=== PATIENT | male | born 1990 | race African-American/Black ===

== ENCOUNTER 2024-03-15 19:50 | Inpatient (IN) ==
[2024-03-15 20:43] LABS: BASOPHILS % (AUTO) 0.2 %; HCT - HEMATOCRIT 46.8 % (42.0-52.0); HGB - HEMOGLOBIN 14.7 g/dL (14.0-18.0); LYMPHOCYTES # (AUTO) 1.4 10^3/uL (1.5-3.5); LYMPHOCYTES % (AUTO) 12.3 %; MEAN CORPUSCULAR HEMOGLOBIN 26.1 pg (27.0-31.0); MEAN CORPUSCULAR HGB CONC 31.4 g/dL (32.0-36.0); MEAN CORPUSCULAR VOLUME 83.1 fL (80.0-94.0); MEAN PLATELET VOLUME 10.5 fL (7.4-11.4); MONOCYTES # (AUTO) 1.1 10^3/uL (0.0-1.0); MONOCYTES % (AUTO) 9.8 %; NEUTROPHILS # (AUTO) 8.7 10^3/uL (1.5-6.6); NEUTROPHILS % (AUTO) 77.1 %; PLT - PLATELET COUNT 448 10^3/uL (130-450); RED BLOOD COUNT 5.63 10^6/uL (4.70-6.10); WHITE BLOOD COUNT 11.3 x10^3/uL (4.8-10.8)
[2024-03-15 21:09] LABS: ALBUMIN 4.1 g/dL (3.2-5.5); ALBUMIN/GLOBULIN RATIO 0.7 (1.0-2.2); BILIRUBIN,TOTAL 0.6 mg/dL (0.2-1.0); CALCIUM 10.6 mg/dL (8.5-10.3); CREATININE 1.5 mg/dL (0.6-1.3); TOTAL PROTEIN 10.3 g/dL (6.4-8.9)
--- NOTE | 2024-03-15 21:26 | ED Physician Documentation ---
PD HPI NVD Stated complaint Stated Complaint: VOMIT Chief complaint Chief Complaint: Abd Pain Additonal information Additional information: HPI from patient. Patient c/o nausea, vomiting, and diarrhea that began three days ago without specific inciting event. The diarrhea resolved yesterday but nausea and vomiting persist with increasingly frequent vomiting and no longer tolerating even sips of liquids for most of the day today. Denies any pain including abdominal pain, denies fever. Denies h/o similar symptoms to an extent that required medical attention. Has not noticed any blood in his vomitus nor stool, denies black/tarry stool. Drinks alcohol occasionally, last was approximately 2 weeks ago; he denies heavy/regular alcohol intake. Meds/Allgy Home Medications Ambulatory Orders Medication Instructions Recorded Confirmed calcium carbonate 500 mg PO DAILY PRN heartburn 03/16/24 03/16/24 ibuprofen 200 mg tablet (Advil) 200 mg PO Q8H PRN pain 03/16/24 03/16/24 diabetic supplies, miscellan. #1 ea 03/17/24 insulin glargine-yfgn 100 unit/mL 15 unit (0.15 mL) subcut QPM #4.5 03/17/24 subcutaneous solution mL Allergies Allergies Allergy/AdvReac Type Severity Reaction Status Date / Time hazelnut Allergy Anaphylaxis Verified 03/15/24 20:05 squash Allergy Anaphylaxis Verified 03/15/24 20:05 [facility] Social History Social History (Updated 03/16/24 @ 03:24 by Madison Villanueva MD) Smoking Status: Former smoker Second hand tobacco smoke exposure: No Do you dip or chew tobacco?: No Do you vape?: No Patient requests smoking cessation consult: No Initiate information on smoking cessation: No Relationship: Level: Independent Do you feel safe in your home environment?: Yes Suffered physical, verbal, emotional, or financial abuse?: No Substance Use: denies use POLST Patient has POLST: No Exam Constitutional normal general appearance, no apparent distress and alert HENMT oral mucous membranes abnormal (dry) Respiratory breath sounds equal bilaterally and clear to auscultation bilaterally Cardiovascular heart rate abnormal (tachycardic), regular rhythm noted and no murmur Gastrointestinal abdomen normal to inspection, abdomen soft to palpation, nontender to palpation, nondistended and normoactive bowel sounds Psychiatry mental status grossly normal, oriented x3, thought process normal and affect normal Results Vitals Vitals: Oxygen O2 Source Room air Labs Labs: Laboratory Tests 03/15/24 03/15/24 03/15/24 20:35 22:00 22:04 WBC 11.3 H RBC 5.63 Hgb 14.7 Hct 46.8 MCV 83.1 MCH 26.1 L MCHC 31.4 L RDW 12.0 Plt Count 448 MPV 10.5 Neut # (Auto) 8.7 H Lymph # (Auto) 1.4 L Beauregard # (Auto) 1.1 H Eos # (Auto) 0.0 Baso # (Auto) 0.0 Absolute Nucleated RBC 0.00 Nucleated RBC % 0.0 VBG pH 7.345 VBG pCO2 29.2 L VBG pO2 48.0 H VBG HCO3 16.1 L VBG Total CO2 17.0 L VBG O2 Saturation 59.0 L VBG Base Excess -9.8 L Sodium 130 L Potassium 4.0 Chloride 80 L* Carbon Dioxide 20 L Anion Gap 30.0 H BUN 43 H Creatinine 1.5 H Estimated GFR (MDRD) 65 L Glucose 523 H* POC Whole Bld Glucose Calcium 10.6 H Phosphorus 6.2 H Magnesium 2.5 H Total Bilirubin 0.6 AST 12 ALT 15 Alkaline Phosphatase 108 Total Protein 10.3 H Albumin 4.1 Globulin 6.2 H Albumin/Globulin Ratio 0.7 L Lipase 27 Urine Color LIGHT YELLOW Urine Clarity SL. CLOUDY Urine pH 5.5 Ur Specific Mercer 1.025 Urine Protein 100 H Urine Glucose (UA) >=1000 H Urine Ketones >=80 H Urine Occult Blood MODERATE H Urine Nitrite NEGATIVE Urine Bilirubin SMALL H Urine Urobilinogen 0.2 (NORMAL) Ur Leukocyte Esterase NEGATIVE Urine RBC 0-5 Urine WBC 6-10 H Urine WBC Clumps PRESENT Ur Epithelial Cells RARE Transitional Ur Squamous Epith Cells MOD Squamous H Urine Bacteria Moderate H Urine Yeast PRESENT Ur Microscopic Review INDICATED Urine Culture Comments NOT INDICATED Serum Ketones SMALL H 03/15/24 03/16/24 03/16/24 23:32 00:56 01:18 WBC RBC Hgb Hct MCV MCH MCHC RDW Plt Count MPV Neut # (Auto) Lymph # (Auto) Beauregard # (Auto) Eos # (Auto) Baso # (Auto) Absolute Nucleated RBC Nucleated RBC % VBG pH VBG pCO2 VBG pO2 VBG HCO3 VBG Total CO2 VBG O2 Saturation VBG Base Excess Sodium 137 Potassium 3.9 Chloride 94 L Carbon Dioxide 20 L Anion Gap 23.0 H BUN 40 H Creatinine 1.3 Estimated GFR (MDRD) 76 L Glucose 368 H POC Whole Bld Glucose 398 371 Calcium 9.2 Phosphorus Magnesium Total Bilirubin AST ALT Alkaline Phosphatase Total Protein Albumin Globulin Albumin/Globulin Ratio Lipase Urine Color Urine Clarity Urine pH Ur Specific Mercer Urine Protein Urine Glucose (UA) Urine Ketones Urine Occult Blood Urine Nitrite Urine Bilirubin Urine Urobilinogen Ur Leukocyte Esterase Urine RBC Urine WBC Urine WBC Clumps Ur Epithelial Cells Ur Squamous Epith Cells Urine Bacteria Urine Yeast Ur Microscopic Review Urine Culture Comments Serum Ketones PD Medical Decision Making ED course Complexity details: reviewed results, re-evaluated patient, considered differential and d/w patient ED course: Presents with n/v/diarrhea, although no diarrheal stools since yesterday. NAD on exam but parched mucous membranes and significant tachycardia. Initial heart rates were 130s-140s at rest, increasing in proportion to position and exertion (worse with standing and ambulating such as from triage to ED room, and from lying on stretcher to standing and ambulating to bathroom). The tachycardia improved in proportion to amount of IV fluids administered but did not resolve even after total of 3 liters NS IV (towards end of ED stay, heart rates were mostly in mid 110s - mid 120s range. Mild leukocytosis (wbc 11.3) on otherwise unremarkable CBC. However, his abnormalities on ER abdominal panel are relevant for glucose 523, BUN 43 and creatinine 1.5. No previous results in [facility] for purposes of comparison, but patient does not have h/o diabetes nor has he ever been told he has abnormal kidney tests. Mild hyponatremia noted (130) as well as hypochloremia (80). Small serum ketones. Without previous results, unclear acuity (vs chronicity) regarding the abnormal renal function tests but given c/o 3 days n/v with negligible PO intake all day today as well as tachycardia that only modestly improved after 3 liters NS, the abnormal BUN and creatinine are likely a consequence of significant dehydration (MARILYN). He is given 10 u regular insulin IV early in ED stay, subsequently given 5 units regular insulin IV. He had ongoing nausea despite three doses of IV zofran (4mg doses for total of 12 mg during ED stay). I discussed this case with [facility] practitioner [facility]communication [facility] and they accept patient for admit to [facility]. Discharge Plan Discharge Patient Disposition: [facility] DC/Xfer Condition: Stable Clinical Impression: Acute hyperglycemia, Dehydration Interventions: ED Admission Assessment Last Done: 03/16/24 03:22
[2024-03-15] MEDS: SODIUM CHLORIDE 0.9% 1,000 ML IV STA (21:33)
[2024-03-15 21:35] LABS: KETONES, SERUM (ACETEST) SMALL (NEGATIVE)
[2024-03-15 21:38] LABS: MAGNESIUM 2.5 mg/dL (1.7-2.3); PHOSPHORUS 6.2 mg/dL (2.5-5.0)
[2024-03-15 22:03] LABS: BILIRUBIN,URINE SMALL (NEGATIVE); GLUCOSE, URINE (UA) >=1000 mg/dL (NEGATIVE); KETONES,URINE (UA) >=80 mg/dL (NEGATIVE); LEUKOCYTE ESTERASE, URINE NEGATIVE (NEGATIVE); NITRITE,URINE NEGATIVE (NEGATIVE); OCCULT BLOOD,URINE MODERATE (NEGATIVE); PH,URINE 5.5 PH (5.0-7.5); PROTEIN,URINE 100 mg/dL (NEGATIVE); UROBILINOGEN,URINE 0.2 (NORMAL) E.U./dL (NORMAL)
[2024-03-15 22:07] LABS: CLARITY,URINE SL. CLOUDY (CLEAR)
[2024-03-15 22:10] LABS: VBG PH 7.345 (7.31-7.41)
[2024-03-15 22:11] LABS: VBG BASE EXCESS -9.8 mmol/L (-2 - +2); VBG PCO2 29.2 mmHg (41-51)
[2024-03-15] MEDS: SODIUM CHLORIDE 0.9% 500 ML IV ONE ×2 (22:17→22:49)
[2024-03-15 22:22] LABS: BACTERIA,URINE Moderate /HPF (None Seen); EPITHELIAL CELLS,UR RARE Transitional /HPF (<= Few); RBC,URINE 0-5 /HPF (0-5); SQUAMOUS EPITHELIAL CELL,UR MOD Squamous (<= Few); WBC CLUMPS,URINE PRESENT; YEAST,URINE PRESENT
[2024-03-15] MEDS: INSULIN REGULAR, HUMAN 300 UNIT/3 ML PEN IVP STA (22:47)
[2024-03-15] MEDS: ONDANSETRON 4 MG/2 ML VIAL IVP STA ×2 (22:49→23:37)
[2024-03-16] MEDS: SODIUM CHLORIDE 0.9% 1,000 ML IV STA (00:33)
[2024-03-16] MEDS: INSULIN REGULAR, HUMAN 300 UNIT/3 ML PEN IVP STA (00:40)
[2024-03-16] MEDS: INSULIN REGULAR, HUMAN 300 UNIT/3 ML PEN SUBQ STA (00:57)
[2024-03-16 01:36] LABS: CALCIUM 9.2 mg/dL (8.5-10.3); CREATININE 1.3 mg/dL (0.6-1.3); POTASSIUM 3.9 mmol/L (3.5-4.5)
[2024-03-16] MEDS: ONDANSETRON 4 MG/2 ML VIAL IVP STA (02:32)
[2024-03-16] MEDS ORDERED: ACETAMINOPHEN 325 MG TABLET PO PRN (02:51)
[2024-03-16] MEDS ORDERED: ONDANSETRON ODT 4 MG TABLET TL PRN (02:51)
[2024-03-16] MEDS ORDERED: METOCLOPRAMIDE 10 MG/2 ML VIAL IVP PRN (03:01)
--- NOTE | 2024-03-16 03:24 | HISTORY & PHYSICAL EXAMINATION ---
Chief Complaint Chief Complaint Chief Complaint: N/V History of Present Illness Admitted From Admitted From:: ER History Obtained From Records Reviewed: Yes History obtained from: Pt, pt's girlfriend, chart, staff Exam Limitations: Virtual exam History of Present Illness HPI Comment/Other: H&P was conducted via video remotely, using [employer]. [place] is in [place] Physician is in [place]. Pt's girlfriend is at bedside. 34 yo M with PMH of DJD presented to the ER with c/o 7 day h/o B/L feet pain and 3 day h/o N/V. Pt had surgery on B/L feet for injuries in past. Now, when the weather is cold, he has pain in his feet. He began to have pain B/L feet 7 days ago, making it difficult to walk. His feet pain began to improve about 3 days ago, but then he began to have N/V--no blood. No unusual foods. Pt found that he had increased nausea s/p drinking filtered water, but girlfriend tolerating water well. No contacts with N/V. Pt also had occasional loose stool: 2x in 3 days. Pt had decreased PO intake d/t N/V. No abdo pain. No dysuria. No F/C. No CP/SOB. Pt has never had similar symptoms. Pt has no h/o DM; has never been told he had high Glc before. In the ER, HR 130, WBC 11.3, Na 130, CO2 20, CR 1.5, Glc 523, +ketones, U/A: glc WBC bact Pt was given IVF x 3L, Insulin 15 U IV, Zofran in the ER. Review of Systems Status of ROS: 10 or more systems reviewed and unremarkable except as noted in history and below PFSH Social History Social History Smoking Status: Unknown if ever smoked Relationship: Do you feel safe in your home environment?: Yes Suffered physical, verbal, emotional, or financial abuse?: No POLST Patient has POLST: No Meds/Allgy Allergies Allergies Allergy/AdvReac Type Severity Reaction Status Date / Time hazelnut Allergy Anaphylaxis Verified 03/15/24 20:05 squash Allergy Anaphylaxis Verified 03/15/24 20:05 Exam Constitutional normal general appearance and no apparent distress HENMT normocephalic Dry MM Eyes EOMs intact bilaterally and no scleral icterus Respiratory cart stethoscope not working; per ER Provider: CTA B/L Cardiovascular cart stethoscope not working; per ER Provider: RR, Tachy, no murmurs Gastrointestinal per ER Provider: non-distended, NT, Soft Extremities per ER Provider: moves all extrem, no edema Neurology A+Ox3, normal speech, cooperative; per ER Provider: NFD Conclusion/Plan Problem List (1) Acute hyperglycemia: Plan: Hyperglycemia DM, new onset Dehydration Hyponatremia MARILYN N/V Tachycardia Decreased PO intake -HR 130, Na 130, CO2 20, CR 1.5, Glc 523, +ketones -Pt was given IVF x 3L, Insulin 15 U IV, Zofran in the ER. -admit to Med Surg -continue IVF -anti-emetics PRN -clear liquid diet; advance as tolerated -accuchecks, SS Insulin, Hypoglycemic protocol -check Hgba1c -Nutrition consult/teaching -avoid nephrotoxins UTI Leukocytosis -WBC 11.3, U/A: glc WBC bact -Rocephin ordered -F/U UC VTE Prophylaxis: Lovenox Code Status: Full Code ~Madison Villanueva MD Hospitalist (2) Dehydration: Lab Results 03/15/24 20:35 03/16/24 01:18
[2024-03-16] MEDS: SODIUM CHLORIDE 0.9% 1,000 ML IV SCH (03:36)
[2024-03-16] MEDS: SODIUM CHLORIDE FLUSH 0.9% 10 ML SYRINGE IVP PRN (03:37)
[2024-03-16 06:10] LABS: BASOPHILS % (AUTO) 0.2 %; EOSINOPHILS % (AUTO) 0.1 %; HCT - HEMATOCRIT 38.8 % (42.0-52.0); HGB - HEMOGLOBIN 12.7 g/dL (14.0-18.0); LYMPHOCYTES # (AUTO) 1.7 10^3/uL (1.5-3.5); LYMPHOCYTES % (AUTO) 16.7 %; MEAN CORPUSCULAR HEMOGLOBIN 27.1 pg (27.0-31.0); MEAN CORPUSCULAR HGB CONC 32.7 g/dL (32.0-36.0); MEAN CORPUSCULAR VOLUME 82.7 fL (80.0-94.0); MEAN PLATELET VOLUME 10.2 fL (7.4-11.4); MONOCYTES # (AUTO) 1.3 10^3/uL (0.0-1.0); MONOCYTES % (AUTO) 12.6 %; NEUTROPHILS # (AUTO) 7.3 10^3/uL (1.5-6.6); NEUTROPHILS % (AUTO) 69.7 %; PLT - PLATELET COUNT 364 10^3/uL (130-450); RED BLOOD COUNT 4.69 10^6/uL (4.70-6.10); RED CELL DISTRIBUTION WIDTH 12.3 % (12.0-15.0); WHITE BLOOD COUNT 10.4 x10^3/uL (4.8-10.8)
[2024-03-16 06:30] LABS: MAGNESIUM 2.3 mg/dL (1.7-2.3)
[2024-03-16 06:34] LABS: CALCIUM 8.6 mg/dL (8.5-10.3); CREATININE 1.1 mg/dL (0.6-1.3); POTASSIUM 4.5 mmol/L (3.5-4.5)
[2024-03-16] MEDS ORDERED: INSULIN REGULAR IN 0.9 % NS 100 UNIT/100 ML BAG IV SCH (08:00)
[2024-03-16] MEDS ORDERED: POTASSIUM CHLORIDE INJ 20 MEQ in SODIUM CHLORIDE 0.9% 1,000 ML IV SCH (08:00)
[2024-03-16] MEDS: ONDANSETRON 4 MG/2 ML VIAL IVP PRN (08:07)
[2024-03-16] MEDS: INSULIN LISPRO 300 UNIT/3 ML PEN SUBQ SCH ×2 (08:11→21:42)
[2024-03-16] MEDS: ENOXAPARIN 40 MG/0.4 ML SYRINGE SUBQ SCH (08:13)
[2024-03-16] MEDS: NS W/20 MEQ KCL 1,000 ML IV SCH (08:15)
[2024-03-16] MEDS: SODIUM CHLORIDE FLUSH 0.9% 10 ML SYRINGE IVP SCH (08:31)
[2024-03-16 08:48] LABS: CALCIUM 8.8 mg/dL (8.5-10.3); CREATININE 1.1 mg/dL (0.6-1.3); POTASSIUM 4.3 mmol/L (3.5-4.5)
[2024-03-16] MEDS ORDERED: cefTRIAXone 1 GM in SODIUM CHLORIDE 0.9% MINIBAG 100 ML IV SCH (09:00)
--- NOTE | 2024-03-16 09:52 | PHARMACY PROGRESS NOTE ---
Best Possible Medication History Admit Date and Time: 03/16/24 0251 Home Medications Medication Instructions Recorded Confirmed Type calcium carbonate 500 mg PO DAILY PRN heartburn 03/16/24 03/16/24 History ibuprofen 200 mg tablet (Advil) 200 mg PO Q8H PRN pain 03/16/24 03/16/24 History Processed by: Pharmacy (Medication reconciliation completed by [employer] Up OperatorDwayne) Medications reviewed in ED?: No Medication History completed: Yes Patient Interview: Completed Secondary Source(s): Insurance records [facility] Statement: As the person ultimately responsible for medication therapy, providers are able to order a medication from an existing home medication list in [facility] via the "Reconcile Routine" prior to Confirmation of that medication by windows support engineer. Such practice is discouraged except when the physician, in their clinical judgment, deems that a medical need exists for a medication without regard to previous use.
[2024-03-16] MEDS: INSULIN REGULAR HUMAN 100 UNIT in SODIUM CHLORIDE 0.9% 100ML 99 ML IV SCH (10:49)
[2024-03-16 11:35] LABS: CALCIUM 8.9 mg/dL (8.5-10.3); POTASSIUM 3.9 mmol/L (3.5-4.5)
[2024-03-16 12:05] LABS: ESTIMATED AVERAGE GLUCOSE 352 mg/dL (70-100); HEMOGLOBIN A1c% 13.9 % (4.27-6.07)
--- NOTE | 2024-03-16 12:10 | MISCELLANEOUS PROVIDER NOTE ---
Miscellaneous Provider Note - Note: Patient was admitted overnight for hyperglycemia, dehydration new onset diabetes mellitus. Urine shows ketones. Patient initially had a anion gap of 30. He remains hyperglycemic in the 300s. Patient is in DKA. Transferred to the ICU. Currently remains on insulin drip, normal saline with potassium supplementation. Plan to continue BMPs every 2 hours, glucose checks every hour. Will continue insulin drip until anion gap closed on 2 subsequent BMPs. Will then transition to long-acting insulin, and start the patient on diet, start sliding scale insulin. Continue to monitor potassium closely and replace as needed.
[2024-03-16] MEDS: PANTOPRAZOLE 40 MG VIAL IVP SCH (12:19)
[2024-03-16] MEDS: POTASSIUM CHLOR 10 MEQ/100 ML 10 MEQ/100 ML BAG IV SCH (12:19)
[2024-03-16 13:16] LABS: CALCIUM 8.8 mg/dL (8.5-10.3); MAGNESIUM 2.4 mg/dL (1.7-2.3); PHOSPHORUS 2.1 mg/dL (2.5-5.0); POTASSIUM 3.5 mmol/L (3.5-4.5)
[2024-03-16] MEDS: PROCHLORPERAZINE 10 MG/2 ML VIAL IVP PRN (13:31)
[2024-03-16] MEDS ORDERED: NS W/40 MEQ KCL 1,000 ML IV SCH (14:00)
[2024-03-16] MEDS: DEXTROSE IV STA (14:18)
[2024-03-16] MEDS: NACL IV STA (14:18)
[2024-03-16] MEDS: POTASSIUM CHLORIDE IV STA (14:18)
[2024-03-16] MEDS: POTASSIUM PHOSPHATE 15 MMOL in SODIUM CHLORIDE 0.9% 250 ML IV ONE (16:25)
[2024-03-16 17:18] LABS: MAGNESIUM 2.3 mg/dL (1.7-2.3)
[2024-03-16 17:23] LABS: CALCIUM 8.9 mg/dL (8.5-10.3); PHOSPHORUS 2.4 mg/dL (2.5-5.0); POTASSIUM 3.6 mmol/L (3.5-4.5)
[2024-03-16] MEDS: INSULIN GLARGINE-YFGN 300 UNIT/3 ML PEN SUBQ STA (17:44)
[2024-03-16] MEDS: DEXTROSE 5%-LACTATED RINGERS 1,000 ML IV SCH (19:35)
[2024-03-17 05:57] LABS: HCT - HEMATOCRIT 37.2 % (42.0-52.0); HGB - HEMOGLOBIN 11.9 g/dL (14.0-18.0); MEAN CORPUSCULAR HEMOGLOBIN 26.3 pg (27.0-31.0); MEAN CORPUSCULAR VOLUME 82.3 fL (80.0-94.0); RED BLOOD COUNT 4.52 10^6/uL (4.70-6.10); RED CELL DISTRIBUTION WIDTH 12.2 % (12.0-15.0); WHITE BLOOD COUNT 7.6 x10^3/uL (4.8-10.8)
[2024-03-17 06:09] LABS: CALCIUM 8.8 mg/dL (8.5-10.3); CREATININE 0.9 mg/dL (0.6-1.3); MAGNESIUM 2.1 mg/dL (1.7-2.3); POTASSIUM 3.5 mmol/L (3.5-4.5)
[2024-03-17] MEDS: INSULIN LISPRO 300 UNIT/3 ML PEN SUBQ SCH (17:26)
--- NOTE | 2024-03-17 19:46 | PROVIDER PROGRESS NOTE ---
Progress Note Progress Note Progress Note: March 17, 2024 7:30 PM Patient was admitted for diabetic ketoacidosis with a new onset of diabetes. His insulin drip was stopped yesterday. But he has been reluctant to eat food here. 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 Yesterday had emesis after his first attempted eating. This morning he is taking liquids well. He has Medicaid. And I discussed what it would cost for him to be started on his insulin. Pharmacy tells me that he does not have a prescription plan. The least expensive would be Lantus and vials. Nutrition services and nursing have started to teach him how to give himself his insulin. Exam: Blood pressure is 141/103, pulse is 114, respirations 18, temperature 36.6, he is 96% on room air. He is 6 foot tall, 100.5 kg with a lean, almost cachectic appearance. Neck is supple. Lungs are clear. Regular rate and rhythm. Abdomen is soft and nontender. No masses. Normal bowel sounds. Extremities without edema and so far no peripheral neuropathy. I reviewed labs today. BMP is completely normal with a carbon dioxide of 21 and anion gap of 13. Fasting glucose was 196, before lunch 195, I before dinner 209. I gave him sliding scale insulin before meals. He had 3 units this morning before breakfast, and 3 units before lunch. He received a one-time dose of Lantus 10 units last night. CBC had mild anemia of 11.9. When he was admitted he was 14.7 and I attribute this to dilution and not to GI bleed. White cell count is normal at 7.6 after he had leukocytosis of 11.3 on admission. Assessment/plan 1. DKA resolved. Insulin drip stopped, patient now on MedSurg. 2. Type 2 diabetes mellitus versus type 1 diabetes mellitus. Check Pancreatic autoantibodies and I will order ELVIS 6 5, IA 2, insulin levels and C-peptide levels. 3. Diabetic education needed. I have asked nutrition services to start working with him. I have asked nurses to start teaching him to check his sugar and give himself injections. Will start him at Lantus 10 units at night and 3 units with each meal. I have already called pharmacy and ordered medications and diabetic supplies at the [facility] pharmacy.
[2024-03-17] MEDS: INSULIN GLARGINE-YFGN 300 UNIT/3 ML PEN SUBQ SCH (21:42)
[2024-03-18 07:51] VITALS: BP 152/97; TEMP 98.6; O2SAT 98
--- NOTE | 2024-03-18 15:10 | Discharge Summary ---
Discharge Summary Admit Date: 03/16/24 Discharge Date: 03/18/24 Discharging Provider: Precious Interiano MD Primary Care Provider: NO PCP. Given list to establish Code Status: Attempt Resuscitation DIAGNOSES Discharge Diagnoses with Status of Each Condition: 1. Possible type 1 diabetes mellitus, uncontrolled, without long-term use of insulin, without complications 2. Diabetic ketoacidosis HPI History of Present Illness: 34 yo M with PMH of DJD presented to the ER with c/o 7 day h/o B/L feet pain and 3 day h/o N/V. Pt had surgery on B/L feet for injuries in past. Now, when the weather is cold, he has pain in his feet. He began to have pain B/L feet 7 days ago, making it difficult to walk. His feet pain began to improve about 3 days ago, but then he began to have N/V--no blood. No unusual foods. Pt found that he had increased nausea s/p drinking filtered water, but girlfriend tolerating water well. No contacts with N/V. Pt also had occasional loose stool: 2x in 3 days. Pt had decreased PO intake d/t N/V. No abdo pain. No dysuria. No F/C. No CP/SOB. Pt has never had similar symptoms. Pt has no h/o DM; has never been told he had high Glc before. In the ER, HR 130, WBC 11.3, Na 130, CO2 20, CR 1.5, Glc 523, +ketones, U/A: glc WBC bact Pt was given IVF x 3L, Insulin 15 U IV, Zofran in the ER. HOSPITAL COURSE Hospital Course: Day 1. The patient was placed in the intensive care unit and restarted on insulin drip. He received aggressive IV fluid and required approximately 4500 cc in the first 24 hours. Glucose responded to the fluids and the insulin drip. He was on the insulin drip for 10 hours. We were able to stop the drip when he was at a glucose level of 125. A1c was 13.9%. Day 2. We then started him on Lantus and sliding scale insulin before meals. However, he was unable to eat breakfast or lunch. He had immediate nausea, and emesis. He was able to tolerate liquids for dinner the first night he was off insulin. The patient is a new diabetic. He has no diabetic instruction at all. [place] going to be difficult for him to access regular care for this. He is overwhelmed. Nurses worked at teaching him how to use a Lantus pen. He is initially unable to pay for that through his insurance pharmacy plan and we provided a voucher for 30-day supply paid for by a nonprofit foundation. The foundation also paid for his glucometer, needles, strips. It is hoped that he will be able to establish himself with a pharmacy plan, a primary care provider, and get his next month insulin paid for. Day 3. On the third day stay he was finally able to keep food down. However it was mainly full liquids. He really did not want to eat solid food. He will be sent home on Lantus 12 units at night. No sliding scale for right now. At this time all of the labs I ordered are still pending. I am trying to distinguish between type I and type 2 diabetes mellitus and those are send out labs it will not be back for probably 5 business days. I am asking him to establish himself with a primary care provider's that he continue getting any of his medications. He is also needing to go to the diabetic education classes. Greater than 30 minutes was spent coordinating discharge.Has been a lot of time going over his medications. Where it is important for him to have his diabetes under control with an A1c less than 7%. The long-term complications of uncontrolled diabetes which included blindness, peripheral vascular disease, nephropathy, neuropathy. 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 This document was made in part using voice recognition software. While efforts are made to proofread this document, sound alike and grammatical errors may occur. ALLERGIES Allergies Allergy/AdvReac Type Severity Reaction Status Date / Time hazelnut Allergy Anaphylaxis Verified 03/15/24 20:05 squash Allergy Anaphylaxis Verified 03/15/24 20:05 MEDICATIONS Ambulatory Orders Medication Instructions Recorded Confirmed calcium carbonate 500 mg PO DAILY PRN heartburn 03/16/24 03/16/24 ibuprofen 200 mg tablet (Advil) 200 mg PO Q8H PRN pain 03/16/24 03/16/24 blood sugar diagnostic (Blood #50 ea 03/18/24 Glucose Test strips) blood-glucose meter #1 ea 03/18/24 insulin glargine 100 unit/mL (3 12 unit (0.12 mL) subcut QPM #3 mL 03/18/24 mL) subcutaneous pen (Lantus Solostar U-100 Insulin) lancets (Lancets,Thin) #200 ea 03/18/24 syringe with needle 1 mL 25 gauge #100 ea 03/18/24 x 5/8" (Easy Touch) PHYSICAL EXAM AT DISCHARGE General Appearance: positive No acute distress and Alert Eyes Bilateral: positive Normal inspection and PERRL ENT: positive ENT inspection nml and Other (loss of teeth in upper and lower gums) Neck: positive No JVD; negative Stiff neck or Carotid bruit Respiratory: positive Chest non-tender, No respiratory distress and Breath sounds nml Cardiovascular: positive Regular rate & rhythm, No murmur and No gallop Abdomen: positive Non-tender, No organomegaly and Nml bowel sounds Skin: positive Warm and Dry Extremities: positive Non-tender, Full ROM and Nml appearance Neurologic/Psychiatric: positive Oriented x3, CN's nml (2-12) and Motor nml LABS 03/17/24 05:29 03/17/24 05:29 FOLLOW UP Follow Up: Patient has been given a a list of PCPs. He needs to quickly establish himself with a primary care provider with that list. TIME SPENT Time Spent in Discharge (Minutes): 45 Discharge Plan Discharge Patient Disposition: Home, Self Care Medically Cleared Date:: 03/18/24 Prescriptions: New (DME) lancets [Lancets,Thin] Misc See Rx Instructions .Route Qty: 200 2RF Rx Instructions: As directed (DME) Easy Touch 1 mL 25 gauge x 5/8" syringe See Rx Instructions .Route Qty: 100 5RF Rx Instructions: As directed, dispense 31G needle (DME) blood-glucose meter Kit See Rx Instructions .Route Qty: 1 0RF Rx Instructions: As directed (DME) Blood Glucose Test Strip See Rx Instructions .Route Qty: 50 7RF Rx Instructions: As directed insulin glargine [Lantus Solostar U-100 Insulin] 100 unit/mL (3 mL) insulin pen 12 unit subcut QPM Qty: 3 2RF Continued calcium carbonate 500 mg calcium (1,250 mg) tablet 500 mg PO DAILY PRN (Reason: heartburn) ibuprofen [Advil] 200 mg tablet 200 mg PO Q8H PRN (Reason: pain) Activity Restrictions: Activity as Tolerated Diet: Diabetic Health Concerns: You do not have a history of diabetes but presented to the emergency room because your sugars were rising. You knew that they were rising because you are checking your sugars with your girlfriend's glucometer. You had abdominal pain, nausea. Will function to be in something called diabetic ketoacidosis with your sugar level was so high that acid ketones were forming in your bloodstream. We put you in the ICU and gave you IV insulin drip, IV fluids and you responded. We then taught you how to use Lantus Solostar pen to give herself 12 units of Lantus every night. Your labs are now normal. Your nausea has resolved. You really are not eating well because you do not like her food. Instructions for discharge: 1. Please establish yourself with a primary care provider so that you can be seen in the next 2 weeks. 2. Have your primary care provider refer you to the diabetic clinic so that you can start regular classes and instruction 3. Your prescriptions will be waiting for you at the pharmacy. Those will include: + Lantus Solostar pen to use 12 units every night before bedtime + A glucometer kit which will include the glucometer, test strips to test her sugar before each meal + Lancets to pick care figure 4. Please follow a diabetic diet. The bullion weigher instructed you on what that is. You can never smoke cigarettes. Diabetes and cigarettes are explosive and the combination of how they will affect her body very poorly 5. We spoke about the importance of why you need to follow diabetic diet and why your glucose needs to be less than 120 5 in the morning. And aim for a glycosylated hemoglobin less than 7%. Complications of uncontrolled diabetes include: + Blindness + Renal failure resulting in dialysis + Frying your nerve endings so you no longer feel your feet and you can develop ulcers, infections, and amputations are required + Severe peripheral vascular disease leading to poor blood supply to your limbs and poor blood supply to your heart and brain Print Language: Luxembourgish Patient Instructions: A1C, Diabetes Heart Disease, Blood Sugar Check, Diabetes Healthy Meals, Diabetes Carbs, Blood Sugar Manage Exercise, Diabetes Inspect Feet Stand Alone Forms: PCP List
== END 2024-03-18 16:25 | disposition home or self-care (01) | DRG 638 ==
LOC: ED 19:50 → MS2 03-16 02:51 → ICU 03-16 10:41 → MS2 03-16 20:49
PROVIDERS: ADMIT Internal Medicine; ATTEND Internal Medicine
DX: E86.0 Dehydration; N39.0 Urinary tract infection, site not specified; E87.1 Hypo-osmolality and hyponatremia; D64.9 Anemia, unspecified; E10.10 Type 1 diabetes mellitus with ketoacidosis without coma; N17.9 Acute kidney failure, unspecified; Z87.891 Personal history of nicotine dependence